=== PATIENT | female | born 1940 | race Caucasian/White ===

== ENCOUNTER 2017-06-01 06:42 | Observation (INO) | payer OTHER ==
[2017-06-01] VITALS (10 sets, daily range): BP systolic 125–151; BP diastolic 55–92
[~2017-06-01] VITALS: Ht 170.2 cm; Wt 72.6 kg
--- NOTE | ~2017-06-01 | D ---
[facility] [place] [address] DISCHARGE SUMMARY Name: DEUCE DAVE I Room #: 204-P [facility] M.R.#: [id number] Admission: 06/01/17 Attend Phys: Shad Kelly MD Discharge: 06/02/17 Date of : 36 Report #: [id number] THIS REPORT FOR: //name// CC: Marco Rocha FAM unknown PIPPA NAIK Shad Kelly DISCHARGE DIAGNOSES: 1. Ischemic cardiomyopathy. 2. Atrial fibrillation with rapid ventricular response. 3. Intolerance of atrioventricular jonathan blocking agents. 4. Left bundle-branch block. PROCEDURES PERFORMED: Bi-V ICD implantation. 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 She today underwent successful implantation of a Bi-V ICD. This was a challenging procedure due to difficult coronary sinus anatomy. Eventually, I was able to position the lead into a posterior lateral branch with great thresholds. There were no intra-procedural complications. She did receive approximately 120 mL of contrast. HOSPITAL COURSE: The patient was monitored in the CCU overnight and did well. she did receive IV fluids at 75 mL an hour for 1 liter. She received IV antibiotics. On telemetry, she was noted to be in atrial fibrillation with rapid ventricular response, which is how she has been for quite some time. She denied any chest pain or shortness of breath. She denied PND or orthopnea. She denies presyncope or syncope. Her device was interrogated and was found to be functioning normally. Her chest x-ray showed stable lead position and no pneumothorax and on physical exam, her heart was regular rate and rhythm. No murmurs, rubs, or gallops. Lungs were clear bilaterally. Her incision was healed nicely with no significant ecchymosis or hematoma. As such, she was deemed stable for discharge home. Discharge instructions were reviewed and she will resume her home medications including the warfarin. She will follow up in 7-10 days for site check and at that time if everything appears to be healing nicely, we will schedule her for an AV node ablation in the next several weeks. <ELECTRONICALLY SIGNED> By: Shad Kelly MD 06/10/17 1749 0827 09 Shad Kelly MD /nt
--- NOTE | ~2017-06-01 | P ---
[facility] [place] [address] PROCEDURE REPORT Name: DEUCE DAVE I Room #: 204-P [facility] M.R.#: [id number] Admission: 06/01/17 Attend Phys: Shad Kelly MD Discharge: 06/02/17 Date of : 36 Report #: [id number] THIS REPORT FOR: //name// CC: Marco Rocha FAM unknown PIPPA NAIK Shad Kelly PROCEDURE: BiV ICD implant. PREOPERATIVE DIAGNOSES: 1. Ischemic cardiomyopathy. 2. Class 2-3 heart failure symptoms. 3. Left bundle-branch block. 4. Atrial fibrillation with uncontrolled rates. 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 She also has permanent atrial fibrillation and is intolerant of AV jonathan blocking agent medications and therefore will also undergo AV node ablation after she recovers from her biventricular ICD insertion. ANESTHESIA: The patient underwent MAC anesthesia with no anesthesia related complications. DESCRIPTION OF PROCEDURE: The patient underwent informed consent. We discussed the details of the procedure including the risks, which include but not limited to bleeding, infection, vascular damage, cardiac perforation as well as stroke or HI. Other risks include pneumothorax. She understood these risks and is willing to proceed. The patient was brought to the EP laboratory in a fasting and unsedated state and prepped and draped in a sterile fashion. The patient received IV antibiotics prior to initiation of the procedure and then underwent a venogram showing patency of the left axillary vein. Prior to the procedure, the patient had told us that she has had vagal reactions in the past during procedures and we therefore were prepared for pacing if necessary. Next, I injected lidocaine below the level of clavicle, incision was made and pocket was created over the prepectoral fascia and then access was obtained twice the left axillary vein using the extrathoracic approach with sheaths positioned using the modified Seldinger technique. First, I placed an RV lead into the right ventricular apex. When I advanced the RV lead into the right ventricle. The patient did develop a heart block and required pacing from that lead for the majority of the case. This lead was placed in the right ventricular apex with adequate pacing and sensing thresholds and this lead was sutured to the prepectoral fascia. [facility] [address] [place] [address] PROCEDURE REPORT Name: DEUCE DAVE I Room #: 204-P [facility] Natalia Jacques#: [id number] Admission: 06/01/17 Attend Phys: Shad Kelly MD Discharge: 06/02/17 Date of : 36 Report #: [id number] Next, I placed my standard coronary sinus guide sheath into the right atrium and attempted to localize the coronary sinus. This was somewhat challenging to localize and initially I could subselect the middle cardiac vein, but could not enter the true coronary sinus. Eventually with my sheath, I was able to perform a contrast venography which showed me the true coronary sinus, but I had difficulties getting a wire up into this vessel. I therefore utilized an inner 90-degree sheath to help guide my wire up to this vessel. Of note, the coronary sinus ostium did have a tortuosity and was in a very posterior location based on SHEIKH and LIMA imaging. Eventually, I was able to get the inner catheter deep into the coronary sinus and was then able to advance the outer catheter as well. Performing a venogram, there was evidence of a posterolateral branch. Prior to this posterior lateral branch, there appeared to be a valve along the distal third of the coronary sinus body, which made advancing the lead somewhat challenging. As I attempted to position the lead into this lateral branch, the outer sheath would move further out of the coronary sinus and eventually I did lose access. I therefore struggled for a while to regain access to the coronary sinus. I attempted to see if there was another branch that was more anterolateral that would be easier to deliver the lead, but there was nothing here. I did place the lead into the AIV and obviously did not leave it there. Again, I was about to lose coronary sinus access with my larger sheath, but I was able to advance my guidewire and quadripolar lead into the distal aspect of this posterolateral branch. Fortunately, there was very good pacing thresholds at this vessel and there was no phrenic nerve compromise. As such, the outer sheath was split and the lead was sutured to the prepectoral fascia with adequate pacing and sensing thresholds. The device was then connected to leads, tested and found to be functioning normally. The pocket was irrigated with vancomycin and then the pocket was closed in 3 layers using 2-0 for the deep layer, 3-0 for the mid layer and 4-0 for the subcuticular layer. Surgical glue was placed to the outer skin layer. The patient awoke neurologically and hemodynamically intact with no complications. The implanted device was a [employer] model #[id number], serial #[id number]. The RV lead was a [employer] model #7122Q, 58 cm, serial #[id number] with a R-wave of greater than 12 millivolts, pacing impedance of 490 ohms and pacing threshold of 0.5 volts at 0.5 milliseconds. The LV lead was a [employer] model #1458Q, 86 cm, serial #[id number] with a pacing impedance of 680 ohms and a pacing threshold of 1.25 volts at 0.5 milliseconds. The device was programmed to the VVIR 80 mode. The VT zone was set at 180-220 beats per minute with 3 rounds of burst followed by 3 rounds of ramp followed by max output shocks. The VF zone was set at greater than 220 beats per minute with ATP while charging followed by max output shocks. CONCLUSIONS: 1. Successful biventricular ICD implantation. [facility] [address] [place] [address] PROCEDURE REPORT Name: TENZINDEUCE I Room #: 204-P [facility]..#: [id number] Admission: 06/01/17 Attend Phys: Shad Kelly MD Discharge: 06/02/17 Date of : 36 Report #: [id number] 2. Satisfactory right ventricular and left ventricular pacing and sensing thresholds. <ELECTRONICALLY SIGNED> By: Shad Kelly MD 07/08/17 1409 1738 0529 Shad Kelly MD /nt
--- NOTE | ~2017-06-01 | EKG ---
[address] [address] ELECTROCARDIOGRAM REPORT Name: DEUCE DAVE I Room #: 204- [facility] M.R.#: [id number] Admission: 06/01/17 Attend Phys: Shad Kelly MD Discharge: Date of : 36 Report #: [id number] THIS REPORT FOR: //name// [facility] Test Date: 2017-06-02 Test Time: 06:06:22 Pat Name: DEUCE DAVE Department: Room: 204 Gender: F Construction Representative: MAXINE : 1940 Requested By: Shad Kelly Order Number: [id number] MD: Shad Kelly Measurements Intervals [place] Rate: 86 P: 0 VT: 138 QRS: 47 QRSD: 128 T: -78 QT: 407 QTc: 487 Interpretive Statements Ventricular-paced complexes Afib No further rhythm analysis attempted due to paced rhythm Nonspecific intraventricular conduction delay Anterior infarct, old Nonspecific T abnormalities, lateral leads No previous ECG available for comparison Electronically Signed On 06-02-2017 8:07:36 [employer] ENGINEER by Shad Kelly [email or web address] <ELECTRONICALLY SIGNED> By: Shad Kelly MD 06/02/17806 5 5 Shad Kelly MD /EPI
[~2017-06-01 06:42] MED LIST: ACETAMINOPHEN325 MG PO; ALLOPURINOL 10100 M3 PO; ASPIR 8181 MG PO; CARDIZEM CD180 MG PO; CARVEDILOL3.125 MG PO; COLACE 100 MG100 MG PO; COUMADIN 3 MG TA3 M1 PO; GLIPIZIDE 10 MG10 MG PO; KLOR-CON 1010 MEQ PO; LASIX 40 MG TAB40 M2 PO; LEVAQUIN 500 M500 M2 PO; LEVEMIR SUBQ; LISINOPRIL5 MG PO; MIRALAX17 GM PO; PREDNISONE 10 M10 MG PO; SYNTHROID100 MCG PO; TOPROL XL100 MG PO
[2017-06-01 07:28] LABS: ABSOLUTE NEUTROPHILS 3.8 thou/uL (1.4-8.2); BASOPHILS 0.9 % (0.0-2.0); EOSINOPHILS 4.2 % (0.0-3.0); HEMATOCRIT 39.1 % (37.0-47.0); HEMOGLOBIN 12.9 gm/dL (12.0-15.0); MCH 29.7 pg (26.0-34.0); MCHC 32.9 g/dL (28.0-37.0); MCV 90.3 fL (80.0-100.0); PLATELET COUNT 152 thou/uL (150-400); POLYS 65.9 % (36.0-66.0); RBC 4.33 mil/uL (4.20-5.00); RDW 15.1 % (10.5-14.5); WBC 5.7 thou/uL (4.0-11.0)
[2017-06-01 07:40] LABS: CREATININE 1.2 mg/dL (0.6-1.0); POTASSIUM 3.9 mmol/L (3.5-5.1)
[2017-06-01 07:44] LABS: APTT 22.8 Seconds (24.5-32.8); INR 1.1; PROTIME 10.5 Seconds (9.3-11.4)
[2017-06-01 07:46] LABS: ALBUMIN 3.6 g/dL (3.4-5.0); TOTAL BILIRUBIN 0.6 mg/dL (<0.1-1.0); TOTAL PROTEIN 6.8 g/dL (6.4-8.2)
[2017-06-02 00:25] VITALS: BP 144/87
[2017-06-02 03:27] LABS: ABSOLUTE NEUTROPHILS 6.5 thou/uL (1.4-8.2); BASOPHILS 0.7 % (0.0-2.0); EOSINOPHILS 2.3 % (0.0-3.0); HEMATOCRIT 40.7 % (37.0-47.0); HEMOGLOBIN 13.5 gm/dL (12.0-15.0); LYMPHOCYTES 10.9 % (24.0-44.0); MCV 90.8 fL (80.0-100.0); PLATELET COUNT 168 thou/uL (150-400); POLYS 78.1 % (36.0-66.0); RBC 4.48 mil/uL (4.20-5.00); RDW 14.9 % (10.5-14.5); WBC 8.4 thou/uL (4.0-11.0)
[2017-06-02 03:33] LABS: CALCIUM 9.2 mg/dL (8.5-10.1); CREATININE 1.1 mg/dL (0.6-1.0); POTASSIUM 3.9 mmol/L (3.5-5.1)
[2017-06-02 04:50] VITALS: BP 146/72
[2017-06-02 10:57] VITALS: BP 174/92
[2017-06-02 11:14] VITALS: BP 159/105
[2017-06-02 12:41] VITALS: BP 174/92
== END 2017-06-02 13:35 | disposition home or self-care (01) ==
LOC: CATH 06:42 → 2N 06:58 → CATH 14:11 → ENTRNSPT 06-02 13:04 → EDTRNSPTSTS 06-02 13:06 → 2N 06-02 13:35
PROVIDERS: Internal Medicine Cardiovascular Disease
DX: I25.5 Ischemic cardiomyopathy (principal); I44.7 Left bundle-branch block, unspecified; I48.2 Chronic atrial fibrillation; I25.10 Atherosclerotic heart disease of native coronary artery without angina pectoris; T46.2X5A Adverse effect of other antidysrhythmic drugs, initial encounter; I10 Essential (primary) hypertension; E11.9 Type 2 diabetes mellitus without complications; Z79.4 Long term (current) use of insulin; Z82.49 Family history of ischemic heart disease and other diseases of the circulatory system; Z87.891 Personal history of nicotine dependence

== ENCOUNTER → 2017-06-24 | Outpatient (CLI) | payer OTHER ==
[~2017-06-24] VITALS: Ht 170.2 cm; Wt 72.6 kg
[2017-06-24 07:14] VITALS: BP 127/78
[2017-06-24 07:25] LABS: ABSOLUTE NEUTROPHILS 3.6 thou/uL (1.4-8.2); EOSINOPHILS 5.8 % (0.0-3.0); HEMATOCRIT 43.1 % (37.0-47.0); HEMOGLOBIN 14.3 gm/dL (12.0-15.0); LYMPHOCYTES 23.9 % (24.0-44.0); MCHC 33.1 g/dL (28.0-37.0); MCV 90.6 fL (80.0-100.0); MONOCYTES 9.6 % (1.0-8.0); PLATELET COUNT 150 thou/uL (150-400); POLYS 59.7 % (36.0-66.0); RBC 4.75 mil/uL (4.20-5.00); RDW 14.9 % (10.5-14.5)
[2017-06-24 07:32] LABS: CALCIUM 9.5 mg/dL (8.5-10.1); CREATININE 1.2 mg/dL (0.6-1.0)
[2017-06-24 07:38] LABS: ALBUMIN 3.7 g/dL (3.4-5.0); APTT 25.3 Seconds (24.5-32.8); INR 1.1; TOTAL BILIRUBIN 0.7 mg/dL (<0.1-1.0)
== END | disposition home or self-care (01) ==
LOC: CATH 06:38
PROVIDERS: Internal Medicine Cardiovascular Disease
DX: I48.91 Unspecified atrial fibrillation (principal); I42.9 Cardiomyopathy, unspecified; I50.9 Heart failure, unspecified; E11.22 Type 2 diabetes mellitus with diabetic chronic kidney disease; N18.9 Chronic kidney disease, unspecified; M10.9 Gout, unspecified; J44.9 Chronic obstructive pulmonary disease, unspecified; Z79.4 Long term (current) use of insulin; Z82.49 Family history of ischemic heart disease and other diseases of the circulatory system; Z79.01 Long term (current) use of anticoagulants; Z79.82 Long term (current) use of aspirin; Z79.899 Other long term (current) drug therapy; Z98.890 Other specified postprocedural states
CPT/HCPCS: 62110; 62900; 70005